=== PATIENT | female | born 1955 | race Caucasian/White ===

== ENCOUNTER → 2019-07-06 09:11 | Outpatient (CLI) | payer MEDICARE, OTHER, SELFPAY ==
--- NOTE | 2019-07-06 | DI.MRI.S_ITS ---
PROCEDURE: MR LUMBAR SPINE WO CON INDICATIONS: low back pain TECHNIQUE: Noncontrast sagittal T1 spin echo and T2 fast echo, sagittal STIR, axial T1 and T2 fast spin echo through the lumbar spine. In cases with scoliosis, additional coronal T2 fast spin echo may be performed. COMPARISON: None. FINDINGS: Image quality: Excellent. Alignment and Curvature: There is normal bony alignment. Bone Marrow: Marrow is of normal overall signal. No acute vertebral body compression fractures. Spinal Cord: Conus medullaris terminates at the L1 level. Visualized cord demonstrates normal signal and size. Paraspinous Soft Tissues: No paravertebral masses. L1-L2: Moderate degenerative disc disease, with disc height reduction and disc desiccation. There is a posterior transverse disc bulge that mildly flattens the anterior thecal sac but the nerve roots are not impinged upon as a result. Facet osteoarthritis is mild, no significant foraminal stenosis is present. L2-L3: Moderate degenerative disc disease, slight posterior subluxation of L2 on L3. The thecal sac is mildly flattened. Facet osteoarthritis is mild and results in minimal foraminal stenosis. L3-L4: Moderate degenerative disc disease, slight posterior transverse disc bulge. Facet osteoarthritis is moderate to moderately severe, and there is secondary mild to moderate foraminal stenosis, symmetric, without definite nerve root impingement at time of scanning. L4-L5: The degenerative disc disease at this level is mild to moderate, there is a posterior transverse disc bulge slightly greater on the left than the right. Facet osteoarthritis is moderate, greater on the left than the right, resulting in moderate left and mild to moderate right foraminal stenosis. L5-S1: Mild degenerative disc disease, asymmetric right greater than left moderate facet osteoarthritis with mild secondary narrowing of the neural foramen but no definite nerve root impingement at time of scanning. IMPRESSION: Multilevel degenerative disc disease and facet osteoarthritis is present, with a relatively mild degree of spinal and foraminal stenosis as a result as discussed in detail by level in the body of the report above. No disc herniation is seen, no compression fracture is found. Dictated by: Ben Quijano M.D. on 07/06/2019 at 12:51 Approved by: Ben Quijano M.D. on 07/06/2019 at 12:56
== END ==
PROVIDERS: Referring Provider Nurse Practitioner; Visit Provider Nurse Practitioner
DX: M54.5 Low back pain (principal); M51.36 Other intervertebral disc degeneration, lumbar region; M51.37 Other intervertebral disc degeneration, lumbosacral region; M47.816 Spondylosis without myelopathy or radiculopathy, lumbar region; M47.817 Spondylosis without myelopathy or radiculopathy, lumbosacral region; M48.061 Spinal stenosis, lumbar region without neurogenic claudication; M48.07 Spinal stenosis, lumbosacral region
CPT/HCPCS: 72148

== ENCOUNTER → 2020-12-11 08:46 | Outpatient (CLI) | payer MEDICARE, OTHER, SELFPAY ==
--- NOTE | 2020-12-11 08:49 | DI.MG.S_ITS ---
BILATERAL DIGITAL SCREENING MAMMOGRAM 3D/2D WITH CAD WITH AUGMENTATION: 12/11/2020 CLINICAL: Routine screening. Comparison is made to exam dated: 03/22/2018 mammogram - [facility]. The tissue of both breasts is predominantly fatty. Current study was also evaluated with a Computer Aided Detection (CAD) system. Bilateral breast implants are intact. There are benign calcifications in both breasts. No significant masses, calcifications, or other findings are seen in either breast. There has been no significant interval change. IMPRESSION: BENIGN There is no mammographic evidence of malignancy. A 1 year screening mammogram is recommended. This exam was interpreted at Station ID: [id number]. NOTE: For mammograms, a report in lay terms will be sent to the patient. Approximately 15% of breast malignancies will not be visualized mammographically. In the management of a palpable breast mass, a negative mammogram must not discourage biopsy of a clinically suspicious lesion. Electronically Signed By: Dandre Smith acr/artur:12/11/2020 10:16:44 letter sent: Normal Exam ACR BI-RADS Category 2: Benign Finding(s) 3342F
== END ==
PROVIDERS: PCP Nurse Practitioner; Referring Provider Nurse Practitioner; Visit Provider Nurse Practitioner
DX: Z12.31 Encounter for screening mammogram for malignant neoplasm of breast (principal)
CPT/HCPCS: 77063; 77067

== ENCOUNTER → 2022-07-18 11:08 | Outpatient (CLI) | payer MEDICARE, OTHER, SELFPAY ==
--- NOTE | 2022-07-18 | DI.MG.S_ITS ---
BILATERAL DIGITAL SCREENING MAMMOGRAM 3D/2D WITH CAD WITH AUGMENTATION: 07/18/2022 CLINICAL: Patient presents for routine screening. S/P bilateral augmentation. Comparison is made to exams dated: 12/11/2020 mammogram - [facility] and 03/22/2018 mammogram - [facility]. Both breasts are heterogeneously dense, which may obscure small masses (category c / 51-75% glandular tissue). Current study was also evaluated with a Computer Aided Detection (CAD) system. Bilateral breast implants are intact. There are benign calcifications in both breasts. No significant masses, calcifications, or other findings are seen in either breast. There has been no significant interval change. IMPRESSION: BENIGN There is no mammographic evidence of malignancy. A 1 year screening mammogram is recommended. Based on the Tyrer Cuzick model (a risk assessment model) the patient's lifetime risk is 6.2% and her 10 year risk is 3.7%. According to the ACR, ACS, and NCCN guidelines, an annual breast MRI exam along with mammogram is recommended if the patient's lifetime risk is 20% or greater. This exam was interpreted at Station ID: [id number]. NOTE: For mammograms, a report in lay terms will be sent to the patient. Approximately 15% of breast malignancies will not be visualized mammographically. In the management of a palpable breast mass, a negative mammogram must not discourage biopsy of a clinically suspicious lesion. Electronically Signed By: Matthew schrader/artur:07/18/2022 12:49:36 letter sent: Normal Exam ACR BI-RADS Category 2: Benign Finding(s) 3342F
--- NOTE | 2022-07-18 | DI.RAD.S_ITS ---
Bone Density Report Name: GREG RADFORD Age: 67 Sex: Female Ethnicity: White Date of : 1955 Indication: postmenopausal; screening for osteoporosis; Referring Provider: CHEVY HERNANDEZ Study: Bone densitometry was performed. Exam Date: July 18, 2022 Accession number: [id number] Bone Density: Region BMD T-score Z-score Classification AP Spine(L1, L3, L4) 1.046 -0.1 2.0 Normal Femoral Neck (Left) 0.633 -1.9 -0.2 Osteopenia Total Hip (Left) 0.756 -1.5 -0.1 Osteopenia Femoral Neck (Right) 0.656 -1.7 0.0 Osteopenia Total Hip (Right) 0.797 -1.2 0.3 Osteopenia Total Hip Mean 0.777 -1.4 0.1 Osteopenia World Health Organization criteria for BMD impression classify patients as: Normal (T-score at or above -1.0), Osteopenia (T-score between -1.0 and -2.5), or Osteoporosis (T-score at or below -2.5). 10-year Fracture Risk(1): Major Osteoporotic Fracture 12% Hip Fracture 2.8% Reported Risk Factors: [place] (), Neck BMD=0.633, BMI=18.9, alcohol use (1) FRAX(R) Version 3.08. Fracture probability calculated for an untreated patient. Fracture probability may be lower if the patient has received treatment. Impression: The patient has low bone mass, based on the Left Femoral Neck T-score. The patient has an estimated ten-year risk of hip fracture of 2.8% and an estimated ten-year risk of major fracture of 12%, based on the WHO FRAX algorithm. The patient has risk factors, including: excessive alcohol use. Discussion: BONE DENSITY IS LOW AT ONE OR MORE SKELETAL SITES. This patient's lowest T-score is low at one or more skeletal sites. It meets the World Health Organization's (WHO) criteria for low bone mass (T-score between -1.0 and -2.5). The patient's 10-year risk of fracture as calculated by FRAX is less than the threshold where pharmacological therapy is recommended by the National Osteoporosis Foundation (NOF). However, all treatment decisions require clinical judgment and consideration of individual patient factors, including patient preferences, comorbidities, previous drug use, risk factors not captured in the FRAX model (e.g., frailty, falls, vitamin D deficiency, increased bone turnover, interval significant decline in bone density) and possible under or overestimation of fracture risk by FRAX. The patient should follow a healthful lifestyle (good nutrition with adequate calcium and vitamin D, and appropriate weight-bearing exercise). Follow-Up: Consider repeating this study in 2 to 3 years to reassess this patient's status, or sooner if there is some new clinical indication. Reported by: BARB VARELA M.D. on 07/18/2022 12:30:00 PM.
== END ==
PROVIDERS: PCP Internal Medicine; Referring Provider Internal Medicine; Visit Provider Internal Medicine
DX: Z12.31 Encounter for screening mammogram for malignant neoplasm of breast (principal); Z98.82 Breast implant status; Z13.820 Encounter for screening for osteoporosis; M85.852 Other specified disorders of bone density and structure, left thigh; Z78.0 Asymptomatic menopausal state
CPT/HCPCS: 77063; 77067; 77080

== ENCOUNTER → 2022-11-13 11:07 | Outpatient (CLI) | payer MEDICARE, OTHER, SELFPAY ==
--- NOTE | 2022-11-13 | DI.RAD.S_ITS ---
PROCEDURE: XR CHEST 2V INDICATIONS: Chronic obstructive pulmonary disease, unspecified TECHNIQUE: 2 views of the chest were acquired. COMPARISON: None. FINDINGS: Surgical changes and devices: None. Lungs and pleura: Lungs are clear. Pulmonary hyperinflation is consistent emphysematous change. No pleural effusions or pneumothorax. Mediastinum: Mediastinal contours are normal. Heart size is normal. Bones and chest wall: No suspicious bony abnormalities. Soft tissues appear unremarkable. IMPRESSION: COPD. No evidence acute pulmonary process. Dictated by: Stanley Curiel M.D. on 11/13/2022 at 15:12 Approved by: Stanley Curiel M.D. on 11/13/2022 at 15:14
== END ==
LOC: RESP 11:09
PROVIDERS: PCP Internal Medicine; Referring Provider Internal Medicine; Visit Provider Internal Medicine
DX: J44.9 Chronic obstructive pulmonary disease, unspecified (principal); Z87.891 Personal history of nicotine dependence
CPT/HCPCS: 71046; 94060; 94726; 94729

== ENCOUNTER → 2022-11-18 09:56 | Outpatient (CLI) | payer MEDICARE, OTHER, SELFPAY ==
[2022-11-18 10:42] LABS: Hematocrit 41.5 % (36-46); Mean Corpuscular HGB Conc 33.8 % (30-36); Mean Corpuscular Hemoglobin 31.8 PG (26-34); Mean Corpuscular Volume 94.2 fL (80-100); Platelet Count 309 X10^3/uL (150-400); Red Blood Cell Count 4.41 X10^6/uL (4.0-5.2); Red Cell Distribution Width 13.3 % (11.6-14.8); White Blood Cell Count 5.5 X10^3/uL (4.5-11.0)
[2022-11-18 11:39] LABS: Neutrophils Absolute Manual 3245 /uL (3000-5900); Total Cells Counted 100
[2022-11-18 11:40] LABS: RBC Morphology Normal Morphology
[2022-11-22 01:41] LABS: Aspergillus fumigatus IgE <0.10 kU/L (Class 0)
[2022-11-22 11:23] LABS: Immunoglobulin E 24 IU/mL (6-495)
== END ==
PROVIDERS: PCP Internal Medicine; Referring Provider Internal Medicine; Visit Provider Internal Medicine
DX: J45.50 Severe persistent asthma, uncomplicated (principal)
CPT/HCPCS: 36415; 82785; 85025; 86003; 99215

== ENCOUNTER 2023-08-05 08:27 | Inpatient (IN) | payer MEDICARE, OTHER, SELFPAY ==
[2023-08-05] VITALS (19 sets, daily range): BP systolic 100–159; BP diastolic 59–83; PULSE 59–98; RESP 10–22; TEMP 36.1–37.4; O2SAT 92–100; BMI 19.0
--- NOTE | 2023-08-05 09:18 | PM.HP.1 ---
History of Present Illness History of Present Illness Chief complaint: Screening Colonoscopy Narrative: Distant history of GI bleed though unclear whether or not from colon or upper tract. In addition last colonoscopy in 2008 need for follow-up screening colonoscopy. And patient has been told that she has colitis though she has normal formed bowel movements once a day. PFSH Social History Smoking Status: Former smoker Meds Home Medications and Allergies Home Medications Medication Instructions Recorded Confirmed Type ipratropium 20 mcg-albuterol 100 1 puff inhalation QID 11/18/22 08/05/23 History mcg/actuation mist for inhalation (Combivent Respimat) rosuvastatin 10 mg tablet 10 mg PO DAILY 11/18/22 08/05/23 History budesonide-formoterol 200 mcg inhalation 2XD severe 12/31/22 08/05/23 Rx persistent asthma #1 unit inhalational spacing device #1 ea 12/31/22 Rx (BreatheRite Valved MDI Chamber spacer) Fluoxetine 20 mg PO DAILY 08/05/23 08/05/23 History Allergies Allergy/AdvReac Type Severity Reaction Status Date / Time Sulfa (Sulfonamide AdvReac Severe Nausea Verified 08/05/23 09:13 Antibiotics) Exam Narrative Exam Narrative: Oropharynx free of lesions Chest clear to auscultation percussion Cardiac exam reveals no S3 or murmur Assessment & Plan Assessment & Plan narrative: Need for screening colonoscopy. Risks, benefits, alternatives have been explained. Biopsies be taken as necessary.
--- NOTE | 2023-08-05 09:19 | P.OP.COLON_ITS ---
Operative Date/Time/Diagnoses Date of procedure: 08/05/23 Pre-op diagnosis: See indication and findings Procedure & Clinicians Study performed: Colonoscopy Indications: Screening Surgeon: Binh Parada Procedure Notes Procedure in detail: After informed consent was obtained the patient was placed in left lateral d ecubitus position. The video colonoscope was introduced the rectum and gently advanced. Preparation was good. In the sigmoid perforation was noted with the scope passing through the rectum sigmoid colon. On slow withdrawal mucosa was carefully examined. The scope was removed. The patient tolerated procedure well. Blood loss none Complications sigmoid perforation Sedation mac Findings 1. Aborted colonoscopy due to sigmoid perforation Case was discussed with Dr. Sanchez will plan on doing a primary closure after antibiotics were given. See
[2023-08-05] MEDS: LACTATED RINGERS 1,000 ML 42 ML IV (10:30)
[2023-08-05] MEDS: PIPERACILLIN/TAZO 3.375 GM in SODIUM CHLORIDE 0.9% 100 ML IV ×2 (10:52→17:54)
--- NOTE | 2023-08-05 10:53 | P.HP_ITS ---
History of Present Illness History of Present Illness Date Patient Seen: 08/05/23 Time Patient Seen: 10:53 Chief complaint: Screening Colonoscopy Narrative: Sri Garcia is a healthy 68-year-old woman PMH asthma who underwent a screening colonoscopy today at [facility]. During the procedure colotomy occurred and the scope was within the abdominal cavity. Procedure was aborted. She is receiving IV Zosyn. No prior abdominal surgery. Walks 1 mi daily without shortness of breath or angina. [facility] Social History Smoking Status: Former smoker alcohol intake: current Meds Home Medications and Allergies Home Medications Medication Instructions Recorded Confirmed Type ipratropium 20 mcg-albuterol 100 1 puff inhalation QID 11/18/22 08/05/23 History mcg/actuation mist for inhalation (Combivent Respimat) rosuvastatin 10 mg tablet 10 mg PO DAILY 11/18/22 08/05/23 History budesonide-formoterol 200 mcg inhalation 2XD severe 12/31/22 08/05/23 Rx persistent asthma #1 unit inhalational spacing device #1 ea 12/31/22 Rx (BreatheRite Valved MDI Chamber spacer) Fluoxetine 20 mg PO DAILY 08/05/23 08/05/23 History Allergies Allergy/AdvReac Type Severity Reaction Status Date / Time Sulfa (Sulfonamide AdvReac Severe Nausea Verified 08/05/23 09:13 Antibiotics) Exam Vital Signs (past 8 hours): - 08/05/23 09:22 08/05/23 10:16 08/05/23 10:21 Temperature 97.6 F 97.6 F Pulse Rate 74 73 68 Respiratory Rate 16 20 22 Blood Pressure 140/80 136/78 114/77 Pulse Oximetry 99 93 94 Oxygen Delivery Method Room Air Room Air Room Air 08/05/23 10:27 08/05/23 10:32 Temperature 97.1 F L Pulse Rate 59 L 66 Respiratory Rate 12 18 Blood Pressure 112/63 150/83 H Pulse Oximetry 95 95 Oxygen Delivery Method Room Air Room Air Oxygen Delivery Method Room Air Narrative Exam Narrative: General adult woman alert oriented no acute distress Chest nonlabored respiration Abdomen tender left lower quadrant. Extremities warm well perfused Assessment & Plan Assessment and plan (1) Perforation of sigmoid colon: Status: Acute Assessment & Plan narrative: 68-year-old woman PMH asthma status post sigmoid colonic perforation during colonoscopy today. Lengthy discussion with the patient and her today and then recovery room. The abdominal cavity was entered with the colonoscope suggesting that colotomy is approximately 1 cm and with her relatively low BMI/minimal omentum unlikely to close spontaneously. I recommended that we proceed with laparoscopic closure of colotomy possible bowel resection. Overview of the operation was described. Operative risks including infection, hemorrhage, damage to surrounding structures, anastomotic leak were discussed. Questions have been answered and she is in agreement with this plan. She is provided her written and verbal consent to proceed.
--- NOTE | 2023-08-05 12:34 | SUR.OPER ---
Lithotomy on padded OR bed. [place] Pad Positioner under torso. Head on pillow, arms padded and tucked at sides. Legs secured in padded yellow fins stirrups.
[2023-08-05] MEDS: BUPIVACAINE LIPOSOME 266 MG/20 ML VIAL INJ (13:31)
--- NOTE | 2023-08-05 14:22 | P.OP_ITS ---
Operative Date/Time/Diagnoses Date of procedure: 08/05/23 Time of procedure: 14:22 Pre-op diagnosis: Colonic injury Post-op diagnosis: same Procedure & Clinicians Procedure: Diagnostic laparoscopy Repair of colotomy Lysis of adhesions Same procedure as scheduled: Yes Indications: Sri Garcia is a 68-year-old woman who sustained a colotomy today during a screening colonoscopy. Scope was noted to be intraperitoneal. Following discussion she elects to proceed with diagnostic laparoscopy possible exploratory laparotomy and possible bowel resection. Surgeon: Giovanny Sanchez High Value Associate: Keith Hua Anesthesia Type: General Operative Notes Findings: Significant adhesions between the sigmoid colon and the abdominal wall notable at she has never had prior abdominal surgery or history of diverticulitis 1 cm full-thickness colotomy at the rectosigmoid junction on the mesenteric side No significant intra-abdominal contamination Specimen(s): none sent Estimated Blood Loss (mL): 20 Procedure in detail: Patient was brought to the operating room placed supine on the table. Bilateral lower extremity compression devices were applied. General anesthesia was induced and she was intubated with an endotracheal tube. Ken catheter was sterilely placed. She was placed into lithotomy position and appropriately padded. She was prepped and draped in sterile fashion and a time-out was performed. She received Zosyn prior to skin incision. We made an infraumbilical incision the fascia was grasped elevated sharply incised and there was a spontaneous release of pneumoperitoneum from the abdomen. 12 mm balloon trocar was then inserted into the abdomen and pneumoperitoneum was established. General inspection of the abdomen was made and this was notable for small amount of free fluid in the pelvis as well as significant adhesions between the sigmoid colon and the abdominal wall. Lysis of adhesions was performed after placing an additional 11 mm port in the right lower quadrant and a 5 mm port suprapubic. Following the white line of Toldt the dissection was carried up to the splenic flexure and this provided excellent medial mobilization of the distal colon. We identified the ureter as it crossed over the iliac vessels and it was clearly noted by its vermiculation. The ureter was kept posterior out of harm's way. There was no obvious sign of injury to the distal colon and so would proceeded with sigmoidoscopy. Scope was placed into the rectum and insufflated. This demonstrated the perforation to be at the rectosigmoid junction deep within the pelvis. The site was marked with a Weck hemoclip. Given its location deep within the pelvis was not amenable to laparoscopic suture closure. We made a minimal infraumbilical incision an Xavier wound protector was placed. The colon was exteriorized. The colotomy was then closed in a running fashion using 3-0 Vicryl. Suture line was then imbricated using interrupted silk suture. The colon was then returned to the abdomen which was then copiously irrigated and returned clear. 20ml of Experel were then infiltrated into the peritoneum. The fascia was closed with looped PDS suture. The umbilical incision was closed with a Vicryl suture in [id number] fashion. Skin closed with Monocryl followed by the application of Dermabond. The sponge and instrument count at the end of the operation was correct. The patient was extubated and transferred to recovery in stable condition. Complications: none Post-operative Condition: stable Disposition: Acute Care
[2023-08-05] MEDS: SODIUM CHLORIDE 0.9% 1,000 ML 100 ML IV (15:23)
--- NOTE | 2023-08-05 15:38 | PC.NURSE ---
Pt to room 203 via bed from PACU. Pt is awake, alert, and oriented. Denies pain, nausea, or shortness of breath. BT audible in all 4 quadrants. Pt given water to drink. Spouse is at the bedside. Pt oriented to room, call light, bed controls, and tv controls. SCD's on and running. IVF infusing as ordered. Bed alarm on for safety. Pt agrees to call for assistance as needed.
[2023-08-05] MEDS: ALBUTEROL/IPRATROPIUM 3 ML AMPUL INH (19:16)
[2023-08-06 00:15] VITALS: BP 102/46; PULSE 87; RESP 16; TEMP 36.4; O2SAT 93
[2023-08-06 06:30] VITALS: BP 109/54; PULSE 87; RESP 16; TEMP 36.4; O2SAT 94
[2023-08-06] MEDS: OXYCODONE IR 5 MG TABLET PO ×2 (07:40→10:58)
[2023-08-06] MEDS: ACETAMINOPHEN 325 MG TABLET 650 MG PO (07:41)
[2023-08-06 08:00] VITALS: BP 104/59; PULSE 75; RESP 16; TEMP 36.6; O2SAT 99
[2023-08-06] MEDS: BUDESONIDE 0.5 MG/2 ML NEB INH (09:47)
[2023-08-06] MEDS: ALBUTEROL/IPRATROPIUM 3 ML AMPUL INH (09:47)
[2023-08-06 09:50] VITALS: PULSE 77; RESP 18; O2SAT 98
[2023-08-06] MEDS: IBUPROFEN 600 MG TABLET PO (10:58)
--- NOTE | 2023-08-06 12:10 | PC.NURSE ---
Pt was able to urinate out 250 ml at 11:15 AM today prior to discharging. VSS. Afebrile. Pt's clothings, shoes, cellphone and forensic toxicologist present with pt at the time time of discharge. Pt was W/C out to [facility]. All questions answered at the time of D/C.
--- NOTE | 2023-08-06 13:59 | CM.DANOTE ---
Patient is a 68 yo female who was admitted [facility] [place] on 08/05/23 for Colostomy with Perf. Pt has [facility] and [facility] for insurance and her PCP is Dr. Willie Chaves. EMR was reviewed. Per Surgeon, pt had scheduled colonoscopy and had a perf and then discussion and further surgery to attempt laproscopic closure and possible need for bowel resection. Per Surgeon, pt tolerated procedure well and medically stable to discharge home today. Per RN, pt ambulating, tolerated diet, pain controlled and was able to independently void before lunch time to safely discharge home. Discharge instructions provided and family transported pt home and no concerns noted. No bedside assessment at this time due to triage needs and no barriers to discharge. Pt resides in [place] with her and is independent at baseline and has local supportive Dtr. Plan: Patient to discharge home via family POV and outpt f/u and no further SW needs at this time. GLENIS Chavarria Discharge Planning/Care Management Advanced directive, confirm from FAMILY Start: 08/05/23 15:18 Freq: Q24H Status: Discharge Protocol: Document 08/05/23 15:18 KMD (Rec: 08/05/23 15:20 KMD [id number]) Advance Directive, confirm on record Time 15:20 Person contacted P:atient Copy received No Document 08/05/23 17:09 CM (Rec: 08/05/23 17:23 CM [id number]) Advance Directive, confirm on record Time 15:20 Person contacted P:atient Copy received No CM Discharge Assessment Start: 08/06/23 13:57 Freq: Status: Discharge Protocol: Document 08/06/23 13:57 BF (Rec: 08/06/23 13:58 BF [id number]) Discharge Planning Assessment Assigned Manager [place] GLENIS Waters DPOA/Assigned Designee Name Spouse Dave Contact Information [phone] Advance Directives? Yes Advance Directives on File No History Provided By Patient,Medical Record Has Patient been admitted in last 30 No days? Prior Living Arrangements House Household Members spouse Type of transporation used prior to Drives own vehicle admit Independent with ADL's Yes Is patient alert and oriented? Yes Caregiver for Another No Barriers to Discharge No Discharge Plan Home Transportation Arrangement Spouse or Dtr to transport at d/c Referrals Initiated None needed Whiteboard Updated in Patient Room with Yes name and ext. # of Manager [place] Review Status In Process Please Provide Date Initial DC 08/06/23 Assessment Was Performed Next Review Type Continued Stay Review
--- NOTE | 2023-08-07 15:18 | PM.DS.1 ---
History of Present Illness History of Present Illness Date Patient Seen: 08/06/23 Time Patient Seen: 15:18 Chief complaint: Screening Colonoscopy Narrative: Sri Garcia is a healthy 68-year-old woman PMH asthma who underwent a screening colonoscopy today at [facility]. During the procedure colotomy occurred and the scope was within the abdominal cavity. Procedure was aborted. She is receiving IV Zosyn. No prior abdominal surgery. Walks 1 mi daily without shortness of breath or angina. Discharge Providers Provider Date of admission: 08/05/23 08:27 Discharge Date: 08/06/23 Primary care physician: Willie Chaves MD Discharge provider: Giovanny Sanchez MD Summary Hospital Course Discharge Diagnosis: Traumatic perforation of colon Hospital Course: Janae underwent a screening colonoscopy 08/04 during which iatrogenic colonic perforation occurred. The scope was within the peritoneum. Following discussion she elected to proceed with diagnostic laparoscopy and closure of the colotomy. She underwent diagnostic colonoscopy which demonstrated multiple intra-abdominal adhesions of the sigmoid colon and the perforation was in the rectosigmoid junction. The perforation was oversewn and she tolerated the operation well. She did well postoperatively tolerate a diet her pain was well controlled afebrile and she left the hospital the following day. Exam Vital Signs (past 8 hours): Fraction of Inspired Oxygen 21 SaO2/FiO2 Ratio 466 Oxygen Delivery Method Room Air Oxygen Flow Rate 0 Narrative Exam Narrative: GENERAL: A well nourished, well developed adult woman, resting comfortably, in no acute distress. HEENT: Normocephalic, atraumatic. No scleral icterus CHEST: Rising symmetrically. No audible wheezes CARDIOVASCULAR: Warm and well perfused. Regular rate ABDOMEN: Soft, appropriately tender to palpation. Small midline incision clean dry intact EXTREMITIES: Normal tone and without edema. NEUROLOGIC: Moving all extremities spontaneously. No gross motor deficits. [facility] Social History household members: spouse Smoking Status: Former smoker alcohol intake: current Discharge Plan Discharge Plan Patient Disposition: Home Provider Discharge Comment: -Okay to shower -Do not submerge wounds in water until seen in follow-up. -No lifting >10 lbs x 4 weeks. -Walking only for exercise for 4 weeks. -No driving while taking narcotics. Discharge orders & Medications Prescriptions: New docusate sodium [Colace] 100 mg capsule 100 mg PO BID Qty: 30 0RF ibuprofen 200 mg tablet 400 mg PO Q6H Qty: 60 0RF tramadol 50 mg tablet 50 mg PO Q6H PRN (Reason: pain) Qty: 15 0RF acetaminophen [Tylenol] 325 mg capsule 650 mg PO QID PRN (Reason: pain) Qty: 60 0RF Continued budesonide-formoterol 200 mcg inhalation 2XD Qty: 1 6RF Rx Instructions: budesonide-formoterol 200mcg-6mcg taken 2 puffs twice daily be sure to rinse mouth after each use AND 2 puffs every 6 hours as needed for shortness of breath PT may have 3 month supply ([facility] [place]) BreatheRite Valved MDI Chamber Spacer See Rx Instructions .Route Qty: 1 0RF Rx Instructions: Use with inhaler Fluoxetine 20 mg PO DAILY Combivent Respimat 20-100 mcg/actuation mist 1 puff inhalation QID Rx Instructions: space evenly during waking hours rosuvastatin 10 mg tablet 10 mg PO DAILY Follow up/Referrals: Willie Chaves MD [Primary Care Provider] - Giovanny Sanchez MD [Physician] - Diet/Activity/Treatments Diet: Diet as Tolerated Skin/Wound/Dressing Care Report to your healthcare provider any signs of infection, such as:: chills, fever, increased pain, unusual drainage and unusual redness Visit Report/Discharge Packet Instructions: High-Fiber Diet, DI for Colon Polypectomy, DI for Hemorrhoid Banding, DI for Laparoscopy, DI for Hemorrhoids, DI for Diverticulosis, [facility]: Wound Care Stand Alone Forms: Patient Portal/API, Stroke Signs & Symptoms, Colonoscopy Result: [facility] S[facility], Colonoscopy Result: [facility], Surgery Discharge Discharge Data Primary Care Provider: Willie Chaves Quality VTE Deep Vein Thrombosis/Pulmonary Embolism Present on Admission: No
== END 2023-08-06 11:20 | disposition home or self-care (01) | DRG 908 ==
LOC: ENDO 12:18 → AC 08-06 07:38 → ENDO 08-06 09:28 → AC 08-06 09:28
PROVIDERS: Admitting Provider Surgery; PCP Internal Medicine; Referring Provider Internal Medicine Gastroenterology; Visit Provider Internal Medicine Gastroenterology
PROC: 0DJD8ZZ Inspection of Lower Intestinal Tract, Via Natural or Artificial Opening Endoscopic (ICD-10-PCS; CPT 45378; principal; 2023-08-05 09:30)
PROC: 0DQN4ZZ Repair Sigmoid Colon, Percutaneous Endoscopic Approach (ICD-10-PCS; CPT 49320; principal; 2023-08-05 12:00)
DX: K91.71 Accidental puncture and laceration of a digestive system organ or structure during a digestive system procedure (principal); Z68.1 Body mass index [BMI] 19.9 or less, adult; J45.909 Unspecified asthma, uncomplicated; Z12.11 Encounter for screening for malignant neoplasm of colon; Z87.891 Personal history of nicotine dependence
CPT/HCPCS: 94640; 94760; C9290; J1100; J1170; J1885; J2405; J2543; J2704

== ENCOUNTER → 2024-08-22 09:43 | Outpatient (CLI) | payer MEDICARE, OTHER, SELFPAY ==
[2023-08-05 15:07] VITALS: BMI 19.0
--- NOTE | 2024-08-22 09:45 | DI.MG.S_ITS ---
MM screening mammo implant BI: 08/22/2024. BI-RADS: 2 CLINICAL: 69-year old female for bilateral screening mammogram. Tyrer-Cuzick lifetime risk of 3.5%. No personal or first-degree family history of breast cancer. The patient has bilateral implants. The patient had a prior right breast biopsy. PRIOR EXAMS 07/18/2022, 12/11/2020, 03/22/2018. MAMMOGRAPHY TECHNIQUE: 2D and 3D (tomosynthesis) digital mammographic views obtained, with additional images as needed for full coverage. Current study was also evaluated with a Computer Aided Detection (CAD) system. DENSITY C. The breasts are heterogeneously dense, which may obscure small masses. IMPLANTS Breast implants present. MAMMOGRAPHY FINDINGS Bilateral: There are no suspicious masses, calcifications, or other findings in the breast. No significant change from comparison. IMPRESSION: * No evidence of malignancy with benign findings. RECOMMENDATIONS Bilateral * Annual screening mammography. OVERALL ASSESSMENT CATEGORY BI-RADS-2: Benign. The [employer] recommends annual screening mammography beginning at age 40 for women with average risk of breast cancer. ELECTRONICALLY SIGNED: Sheryl Daily M.D. on 08/22/2024 at 10:57:23 PM PT Interpreting Station ID: [id number]
--- NOTE | 2024-08-22 09:45 | DI.RAD.S_ITS ---
PROCEDURE: XR DEXA AXIAL SKELETON INDICATIONS: annual screening-screening for osteoporosis/osteop COMPARISON: [facility], CR, XR DEXA AXIAL SKELETON, 07/18/2022, 12:09. FINDINGS: Lumbar Spine: Bone mineral density 1.024 (previously 1.046) g/cm2, T score -0.3 (previously -0.1). Left Femoral Neck: Bone mineral density 0.624 (previously 0.633) g/cm2, T score -2.0 (previously -1.9). Left Hip: Bone mineral density 0.762 (previously 0.756) g/cm2, T score -1.5 (previously -1.5). Fracture Risk Calculation (when applicable): 10-year fracture risk of a major osteoporotic fracture 12 percent and of a hip fracture 3.3 percent. (T score greater or equal to -1.0 to: NORMAL) (T score from -1.1 to -2.4: OSTEOPENIA) (T score less than or equal to -2.5: OSTEOPOROSIS) IMPRESSION: Osteopenia--- recommend repeat DEXA in 2-3 years for reassessment. Follow-up guidelines as follows: Osteoporosis: Consider a repeat DEXA and Vertebral Fracture Assessment (VFA) exam in 2 years or sooner if medically necessary, to reassess this patient's status. Osteopenia: Consider a repeat DEXA in 2-3 years to reassess this patient's status, or if there is a new clinical indication. Normal: Consider a repeat DEXA in 5 years or sooner, or if there is a new clinical indication. All treatment decisions require clinical judgment and consideration of individual patient factors, including patient preferences, comorbidities, previous drug use, risk factors not captured in the FRAX model (e.g., frailty, falls, vitamin D deficiency, increased bone turnover, interval significant decline in bone density ) and possible under- or over-estimation of fracture risk by FRAX. In addition, the NOF Guide recommends that FDA-approved medical therapies be considered in postmenopausal women and men age >= 50 years with a: * Hip or vertebral (clinical or morphometric) fracture * T-score of <=-2.5 at the spine or hip * Ten-year fracture probability by FRAX of >= 3% for hip fracture or >=20% for major osteoporotic fracture. Dictated by: Stanley Persaud M.D. on 08/22/2024 at 21:41 Approved by: Stanley Persaud M.D. on 08/22/2024 at 21:45
== END ==
LOC: RAD 09:44
PROVIDERS: PCP Internal Medicine
DX: Z12.31 Encounter for screening mammogram for malignant neoplasm of breast (principal); M85.89 Other specified disorders of bone density and structure, multiple sites; R92.333 Mammographic heterogeneous density, bilateral breasts; Z98.82 Breast implant status
CPT/HCPCS: 77063; 77067; 77080